=== PATIENT | female | born 1995 | race Caucasian/White ===

== ENCOUNTER 2018-11-24 18:12 | Emergency (ER) | payer BC ==
--- NOTE | 2018-11-24 19:44 | ED ---
Skin Complaint - HPI Summary HPI Summary: A 23 y/o F who was dx: [place] two days ago presents to ED with c/o of itchy and erythematous rash on neck, chest and back onset this AM when she woke up. Associated sx: swollen throat, mild dysphagia, fever which has resolved. Denies lip swelling, abd pain, n/v/d. She's taken Tylenol, Advil, steroids and Benadryl today. She had a swollen lymphnode last week, went to the [facility], [place] and was given Clinda. On 11/22, she found she had mono, and was told to stop taking the Clinda. She took one dose that morning. Yesterday, her throat was so swollen it was difficult to speak. She went to the [facility] again, and they gave her steroids which helped moderately. She last took Tylenol at 1430; Ibuprofen at 1000. - History of Current Complaint Chief Complaint: EDRashSkinAbscess Time Seen by Provider: 11/24/18 19:35 Stated Complaint: MONO,RASH PER PT Hx Obtained From: Patient Onset/Duration: Started Hours Ago - this AM, Still Present Skin Exposure Onset/Duration: Hours Ago Timing: Constant Onset Severity: Moderate Current Severity: Moderate Pain Intensity: 5 Pain Scale Used: 0-10 Numeric Skin Location: Face, Neck, Chest, Other: - back Character: Pruritus, Redness Associated Signs & Symptoms: Fever, Throat Tightening - throat swelling, mild dysphagia - Allergy/Home Medications Allergies/Adverse Reactions: Allergies Allergy/AdvReac Type Severity Reaction Status Date / Time clindamycin Allergy Hives Verified 11/25/18 08:45 Home Medications: Home Medications Norethindrone-Ethinyl Estrad [Pirmella 7-7-7-28 Tablet] 1 tab PO DAILY 11/24/18 [History Confirmed 11/24/18] PMH/Surg Hx/FS Hx/Imm Hx Previously Healthy: Yes Sensory History: Denies: Hx Legally Blind, Hx Deafness Opthamlomology History: Denies: Hx Legally Blind EENT History: Denies: Hx Deafness Neurological History: Denies: Hx Dementia Infectious Disease History: No Infectious Disease History: Denies: Traveled Outside the [place] in Last 30 Days - Family History Known Family History: Positive: None - pt denies FHx Negative: Renal Disease - Social History Occupation: Student Lives: Dormitory/Roommates Alcohol Use: Weekly Substance Use Type: Reports: Marijuana Hx Tobacco Use: No Smoking Status (MU): Never Smoked Tobacco Review of Systems Positive: Fever - resolved Positive: Other - pos: throat swelling, mild dysphagia. neg: lip swelling. Negative: Abdominal Pain, Vomiting, Diarrhea, Nausea Positive: Rash All Other Systems Reviewed And Are Negative: Yes Physical Exam - Summary Physical Exam Summary: Appearance: Well appearing, no pain distress Skin: warm, dry, reflects adequate perfusion. There is macular papular and erythematous diffuse rash everywhere except bilat LE. Head/face: normal Eyes: EOMI, SHANON ENT: mucous membranes moist. tonsils with exudate. No lip, tongue or uvula swelling Neck: supple, non-tender Respiratory: CTA, breath sounds present Cardiovascular: RRR, pulses symmetrical Abdomen: non-tender, soft Bowel Sounds: present Musculoskeletal: normal, strength/ROM intact Neuro: normal, sensory motor intact, A&Ox3 Triage Information Reviewed: Yes Vital Signs On Initial Exam: Initial Vitals Temp Pulse Resp BP Pulse Ox 99.0 F 73 18 123/74 98 11/24/18 18:13 11/24/18 18:13 11/24/18 18:13 11/24/18 18:13 11/24/18 18:13 Vital Signs Reviewed: Yes Diagnostics - Vital Signs Vital Signs Temp Pulse Resp BP Pulse Ox 11/24/18 18:13 99.0 F 73 18 123/74 98 - Laboratory Lab Statement: Any lab studies that have been ordered have been reviewed, and results considered in the medical decision making process. Course/Dx - Course Course Of Treatment: patient with known mononucleosis now with rash. The vitals stable no evidence for allergy. To take clindamycin which has since been discontinued. Treat symptomatically. - Diagnoses Provider Diagnoses: Mononucleosis, Viral exanthem Discharge - Sign-Out/Discharge Documenting (check all that apply): Patient Departure - DC Patient Received Moderate/Deep Sedation with Procedure: No - Discharge Plan Condition: Stable Disposition: HOME Prescriptions: Famotidine TAB* [Pepcid 20 MG TAB*] 20 mg PO BID #10 tab Patient Education Materials: Mononucleosis (ED), Viral Exanthem (ED) Referrals: [facility] [Z.BUSINESS, APPLICATION, OTHER] - Additional Instructions: Continue steroid, benadryl as needed. No more antibiotic. Return with difficulty swallowing, worse, new symptoms or other concerns. Pepcid may help with some skin redness or itching. - Billing Disposition and Condition Condition: STABLE Disposition: Home - Attestation Statements Document Initiated by Charly: Yes Documenting Scribe: Eber Katz Provider For Whom Charly is Documenting (Include Credential): Dr. Rambo Jacobs MD Scribe Attestation: I, Eber Katz scribed for Dr. Rambo Jacobs MD on 11/28/18 at 1009. Scribe Documentation Reviewed: Yes Provider Attestation: The documentation as recorded by the Eber santillan accurately reflects the service I personally performed and the decisions made by me, Dr. Rambo Jacobs MD Status of Scribe Document: Viewed
[2018-11-24] MEDS ORDERED: Ibuprofen PED LIQ 100 MG/5 ML UDC PO ONE (19:50)
[2018-11-24] MEDS ORDERED: Lidocaine 2% VISCOUS* 15 ML UDC PO ONE (19:50)
[2018-11-24] MEDS ORDERED: Famotidine TAB* 20 MG PO ONE (19:50)
[2018-11-24 20:31] VITALS: BP 119/70
== END 2018-11-24 20:30 | disposition home or self-care (01) ==
LOC: ED 18:12
DX: B27.90 Infectious mononucleosis, unspecified without complication (principal); B09 Unspecified viral infection characterized by skin and mucous membrane lesions; Z88.1 Allergy status to other antibiotic agents
CPT/HCPCS: 99282; A9270-GY

== ENCOUNTER 2018-11-25 08:40 | Emergency (ER) | payer BC ==
[2018-11-25] MEDS ORDERED: NS 0.9% 1000 ML** 1,000 ML IV ONE (09:03)
[2018-11-25] MEDS ORDERED: methylPREDNISolone 125 MG* 2 ML VIAL IV ONE (09:03)
[2018-11-25] MEDS ORDERED: Ketorolac INJ* 30 MG/ML 1 ML VIAL IV PUSH ONE (09:03)
[2018-11-25] MEDS ORDERED: Famotidine IV* 10 MG/ML 2 ML (20 mg) IV SLOW PU ONE (09:04)
[2018-11-25] MEDS ORDERED: diPHENhydraMINE IV* 50 MG/ML 1 ml VIAL (BENADRYL) IV ONE (09:04)
[2018-11-25 09:47] LABS: Hematocrit 37 % (33-41); Hemoglobin 12.5 g/dL (12.0-16.0); Mean Corpuscular HGB Conc 34 g/dL (31-36); Mean Corpuscular Hemoglobin 30 pg (27-31); Mean Corpuscular Volume 88 fL (80-97); Mean Platelet Volume 9.1 fL (7.4-10.4); Platelet Count 145 10^3/uL (150-450); Red Blood Count 4.17 10^6 /uL (3.70-4.87); Red Cell Distribution Width 13 % (10.5-15)
[2018-11-25] MEDS ORDERED: Triamcinolone 0.5% OINT * 15 GM TUBE TOPICAL ONE (10:06)
[2018-11-25 10:13] LABS: Albumin 3.1 g/dL (3.2-5.2); Albumin/Globulin Ratio 1.2 (1-3); BUN/Creatinine Ratio 12.9 (8-20); C Reactive Protein 40.77 mg/L (<8.01); Calcium 8.3 mg/dL (8.6-10.3); EGFR African American 126.6 (>60); EGFR Non-African American 104.6 (>60); Globulin 2.5 g/dL (2-4); Potassium 3.5 mmol/L (3.5-5.0); Total Bilirubin 0.5 mg/dL (0.2-1.0); Total Protein 5.6 g/dL (6.4-8.9)
--- NOTE | 2018-11-25 10:46 | ED ---
Allergic Reaction/Systemic - HPI Summary HPI Summary: Patient is a 23-year-old female who was recently diagnosed with mono presenting to the ED with a diffuse rash. She states she was given prednisone on Thursday and has been taking it since that time. She was also given clindamycin on Thursday, but discontinued this after she tested positive for mono and negative for strep. She states she only took one dose of the clindamycin. She has been on 2 doses now of steroid. She had a rash yesterday, but states this worsened today and is diffuse and pruritic. Denies any fevers, sweats, chills. Denies any difficulty with breathing. She does endorse dysphasia and odynophagia due to swollen tonsils bilaterally with exudates. - History of Current Complaint Chief Complaint: EDAllergicReaction Time Seen by Provider: 11/25/18 08:49 Hx Obtained From: Patient Onset/Duration: Sudden Onset Timing: Constant Severity Initially: Moderate Severity Currently: Moderate Pain Intensity: 7 Pain Scale Used: 0-10 Numeric Character: Swelling, Pruritus, Pain, Hives Aggravating Factor(s): Nothing Alleviating Factor(s): Cold, Antihistamines - Allergies/Home Medications Allergies/Adverse Reactions: Allergies Allergy/AdvReac Type Severity Reaction Status Date / Time clindamycin Allergy Hives Verified 11/25/18 08:45 Home Medications: Home Medications predniSONE TAB* [Deltasone 20 MG TAB*] 60 mg PO DAILY 11/25/18 [History Confirmed 11/25/18] PMH/Surg Hx/FS Hx/Imm Hx Previously Healthy: Yes Sensory History: Denies: Hx Legally Blind, Hx Deafness Opthamlomology History: Denies: Hx Legally Blind Neurological History: Denies: Hx Dementia - Immunization History Hx Pertussis Vaccination: No Immunizations Up to Date: Yes Infectious Disease History: No Infectious Disease History: Denies: Traveled Outside the [place] in Last 30 Days - Family History Known Family History: Positive: None - pt denies FHx Negative: Renal Disease - Social History Occupation: Unemployed, Student Lives: With Family Alcohol Use: Weekly Alcohol Amount: weekends Hx Substance Use: No Substance Use Type: Reports: Marijuana Substance Use Comment - Amount & Last Used: occasionally Hx Tobacco Use: No Smoking Status (MU): Never Smoked Tobacco Review of Systems Constitutional: Negative Negative: Fever, Chills, Fatigue, Skin Diaphoresis Negative: Palpitations, Chest Pain Negative: Shortness Of Breath, Cough Genitourinary: Negative Positive: no symptoms reported, see HPI Negative: Arthralgia, Myalgia Positive: Other - diffuse pruritic maculopapular rash throughout the body and face Neurological: Negative All Other Systems Reviewed And Are Negative: Yes Physical Exam Triage Information Reviewed: Yes Vital Signs On Initial Exam: Initial Vitals Temp Pulse Resp BP Pulse Ox 99.7 F 95 16 131/76 100 11/25/18 08:42 11/25/18 08:42 11/25/18 08:42 11/25/18 08:42 11/25/18 08:42 Vital Signs Reviewed: Yes Appearance: Positive: Well-Appearing Skin: Positive: Other - diffuse pruritic maculopapular rash throughout the body and face ENT: Positive: Pharyngeal erythema, Tonsillar swelling, Tonsillar exudate. Negative: Nasal congestion, Nasal drainage Neck: Positive: Supple, No Lymphadenopathy Respiratory/Lung Sounds: Positive: Clear to Auscultation, Breath Sounds Present Cardiovascular: Positive: RRR, Pulses are Symmetrical in both Upper and Lower Extremities Musculoskeletal: Positive: Normal, Strength/ROM Intact Neurological: Positive: Sensory/Motor Intact, Speech Normal Psychiatric: Positive: Affect/Mood Appropriate AVPU Assessment: Alert Diagnostics - Vital Signs Vital Signs Temp Pulse Resp BP Pulse Ox 11/25/18 09:20 85 100 11/25/18 09:18 90 133/88 100 11/25/18 08:42 99.7 F 95 16 131/76 100 - Laboratory Lab Results: Lab Results 11/25/18 11/25/18 Range/Units 09:35 09:35 WBC 14.0 H (3.5-10.8) 10^3/uL RBC 4.17 (3.70-4.87) 10^6 /uL Hgb 12.5 (12.0-16.0) g/dL Hct 37 (33-41) % MCV 88 (80-97) fL MCH 30 (27-31) pg MCHC 34 (31-36) g/dL RDW 13 (10.5-15) % Plt Count 145 L (150-450) 10^3/uL MPV 9.1 (7.4-10.4) fL Neut % (Auto) Pending Lymph % (Auto) Pending [place] % (Auto) Pending Eos % (Auto) Pending Baso % (Auto) Pending Absolute Neuts (auto) Pending Absolute Lymphs (auto) Pending Absolute Monos (auto) Pending Absolute Eos (auto) Pending Absolute Basos (auto) Pending Absolute Nucleated RBC Pending Nucleated RBC % Pending Sodium 139 (135-145) mmol/L Potassium 3.5 (3.5-5.0) mmol/L Chloride 108 (101-111) mmol/L Carbon Dioxide 23 (22-32) mmol/L Anion Gap 8 (2-11) mmol/L BUN 9 (6-24) mg/dL Creatinine 0.70 (0.51-0.95) mg/dL Est GFR ( Amer) 126.6 (>60) Est GFR (Non-Af Amer) 104.6 (>60) BUN/Creatinine Ratio 12.9 (8-20) Glucose 113 H (70-100) mg/dL Calcium 8.3 L (8.6-10.3) mg/dL Total Bilirubin 0.50 (0.2-1.0) mg/dL AST 104 H (13-39) U/L ALT 75 H (7-52) U/L Alkaline Phosphatase 72 (34-104) U/L C-Reactive Protein 40.77 H (<8.01) mg/L Total Protein 5.6 L (6.4-8.9) g/dL Albumin 3.1 L (3.2-5.2) g/dL Globulin 2.5 (2-4) g/dL Albumin/Globulin Ratio 1.2 (1-3) Result Diagrams: 11/25/18 09:35 11/25/18 09:35 Lab Statement: Any lab studies that have been ordered have been reviewed, and results considered in the medical decision making process. Allergic Reaction Course/Dx - Course Course Of Treatment: HerDuring the course of treatment, labs are obtained which show an elevated leukocytosis of 14.0. Elevated CRP. Elevated liver enzymes consistent with mononucleosis. Patient has diffuse maculopapular pruritic rash throughout body and face. Slight swelling to the cheeks. There is no swelling to the lips or throat. She denies any difficulty with breathing. She does endorse odynophagia dysphagia, however this has been present 3-4 days and she states this has not been worsening. So the patient is given 1 L fluids, 50 mg Benadryl, 40 mg famotidine and 125 mg IV methylprednisolone. She states this has not improved her symptoms. She subsequently was given triamcinolone cream for her back. After waiting 4 hours, patient endorses some mild improvement of the rash and complete improvement of her sore throat and difficulty with swallowing. I discussed with the patient at length she may be dealing with this rash for several days and she will continue to take the prednisone, famotidine, Benadryl, triamcinolone cream and Toradol for the throat. She understands strict return precautions involve unable to swallow secretions or any breathing difficulties. She will remain out of school for the next 4 days. She has no breathing difficulties right now. Lungs are CTA, RRR. Vital signs are stable. - Diagnoses Differential Diagnosis/HQI/PQRI: Positive: Urticaria Provider Diagnoses: Urticaria Discharge - Sign-Out/Discharge Documenting (check all that apply): Patient Departure Patient Received Moderate/Deep Sedation with Procedure: No - Discharge Plan Condition: Stable Disposition: HOME Prescriptions: Ketorolac TAB * [Toradol TAB *] 10 mg PO Q6H #16 tab predniSONE TAB* [Deltasone 20 MG TAB*] 20 mg PO SEE INSTRUCTIONS #6 tab Triamcinolone 0.5% CREAM(NF) [Triamcinolone 0.5% CREAM*] 1 applic TOPICAL QID # 1 tube Patient Education Materials: Mononucleosis (ED), Urticaria (ED), Cold Compress or Soak (ED) Referrals: No Primary Care Phys,NOPCP [Primary Care Provider] - Additional Instructions: Please follow up with student health Continue to take the prednisone 60mg once daily x 3 days, then take 40mg once daily x 2 days and 20 mg once daily x 2 days Benadryl 50mg up to twice daily or Benadryl 25mg four times daily Toradol 10mg four times daily - DO NOT TAKE ANY NSAIDS (NAPROXEN OR IBUPROFEN) WHILE TAKING THIS MEDICATION Famotidine 40mg twice daily Triamcinalone cream - apply to affected area Rest - drink plenty of water Out of school until thursday - Billing Disposition and Condition Condition: STABLE Disposition: Home
[2018-11-25 11:06] LABS: ABS Basophils 0 10^3/ul (0-0.2); ABS Eosinophils 0.3 10^3/ul (0-0.6); ABS Lymphocytes 4.8 10^3/ul (1.0-4.8); ABS Monocytes 1.5 10^3/ul (0-0.8); ABS Neutrophils 7.4 10^3/ul (1.5-7.7)
[2018-11-25 11:09] LABS: ABS Basophils 0 10^3/ul (0-0.2); ABS Eosinophils 0.7 10^3/ul (0-0.6); ABS Neutrophils 7.7 10^3/ul (1.5-7.7); Lymphocytes % 27 %; Monocytes % 7 %; Neutrophil % 55 %; Variant Lymph % 6 % (0-6)
[2018-11-25 13:02] VITALS: BP 117/79
== END 2018-11-25 13:13 | disposition home or self-care (01) ==
LOC: ED 08:40
DX: L50.9 Urticaria, unspecified (principal); R21 Rash and other nonspecific skin eruption
CPT/HCPCS: 36415; 80053; 85025; 85060; 86140; 96361; 96374; 96375; 99283; A9270-GY; J1200; J1885; J2930